=== PATIENT | male | born 1995 | race Caucasian/White ===

== ENCOUNTER 2020-05-31 22:57 | Emergency (ER) | payer OTHER ==
[2020-05-31 23:22] VITALS: BP 140/87; PULSE 85; TEMP 99.5; BMI 28.1
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
== END 2020-05-31 23:57 | disposition home or self-care (01) ==
LOC: FER 22:57
DX: Z77.21 Contact with and (suspected) exposure to potentially hazardous body fluids (principal)
CPT/HCPCS: 99281-25

== ENCOUNTER 2021-10-12 21:27 | Emergency (ER) | payer OTHER ==
[2021-10-12 21:53] VITALS: BP 139/70; PULSE 78; TEMP 98.6; BMI 28.1
== END 2021-10-12 22:46 | disposition home or self-care (01) ==
LOC: FER 21:27
DX: S60.221A Contusion of right hand, initial encounter (principal)
CPT/HCPCS: 99283-25

== ENCOUNTER 2021-10-16 20:12 | Emergency (ER) | payer OTHER ==
[2021-10-16 20:24] VITALS: BP 135/70; PULSE 72; TEMP 99.4; BMI 28.1
== END 2021-10-16 21:12 | disposition home or self-care (01) ==
LOC: FER 20:12
DX: S60.921A Unspecified superficial injury of right hand, initial encounter (principal)
CPT/HCPCS: 73130-TC-RT-FY; 99284-25

== ENCOUNTER 2021-11-12 21:49 | Emergency (ER) | payer OTHER ==
[2021-11-12 22:10] VITALS: BP 130/73; PULSE 79; TEMP 98.9; BMI 28.1
== END 2021-11-12 22:16 | disposition home or self-care (01) ==
LOC: FER 21:49
DX: Z77.21 Contact with and (suspected) exposure to potentially hazardous body fluids (principal)
CPT/HCPCS: 99281-25

== ENCOUNTER 2022-05-25 18:05 | Emergency (ER) | payer OTHER ==
[2022-05-25] MEDS ORDERED: LIDOCAINE HCL 2% (50ML VIAL) INF ONE (18:24)
[2022-05-25] MEDS ORDERED: LIDOCAINE HCL 2% (20ML MULTI-DOSE VIAL) ONE (18:28)
[2022-05-25] MEDS ORDERED: DIPHTH,PERTUSS(ACELL),TET 0.5 ML DISP.SYRIN IM ONE ×2 (18:28→18:40)
[2022-05-25 18:38] VITALS: BP 134/88; PULSE 73; RESP 20; TEMP 99; BMI 27.3
== END 2022-05-25 19:07 | disposition home or self-care (01) ==
LOC: FER 18:05
PROC: 3E0234Z Introduction of Serum, Toxoid and Vaccine into Muscle, Percutaneous Approach (ICD-10-PCS; principal; 2022-05-25)
PROC: 3E0234Z Introduction of Serum, Toxoid and Vaccine into Muscle, Percutaneous Approach (ICD-10-PCS; 2022-05-25)
DX: S61.012A Laceration without foreign body of left thumb without damage to nail, initial encounter (principal); W26.0XXA Contact with knife, initial encounter
CPT/HCPCS: 90715; 99282-25

== ENCOUNTER 2022-06-04 11:54 | Emergency (ER) | payer OTHER ==
[2022-06-04 12:00] VITALS: BP 117/77; PULSE 56; RESP 18; TEMP 98.5; BMI 27.3
== END 2022-06-04 12:10 | disposition home or self-care (01) ==
LOC: FER 11:54
DX: T81.33XA Disruption of traumatic injury wound repair, initial encounter (principal); Z48.02 Encounter for removal of sutures
CPT/HCPCS: 99281-25

== ENCOUNTER 2023-07-05 00:07 | Emergency (ER) | payer OTHER ==
[2023-07-05 00:25] VITALS: BP 136/76; PULSE 87; RESP 18; TEMP 98; BMI 28.1
[2023-07-05] MEDS ORDERED: BACITRACIN 0.9 GM PACKET ONE (01:02)
[2023-07-05] MEDS ORDERED: BACITRACIN ZINC 15 GM TUBE TOPICAL OINTMENT ONE (01:04)
[2023-07-05] MEDS ORDERED: MUPIROCIN CA 2% TOPICAL CREAM 15 GM TUBE TP SCH (10:00)
== END 2023-07-05 02:43 | disposition home or self-care (01) ==
LOC: JER 00:07
DX: S60.511A Abrasion of right hand, initial encounter (principal); S80.911A Unspecified superficial injury of right knee, initial encounter; S80.912A Unspecified superficial injury of left knee, initial encounter; Y04.0XXA Assault by unarmed brawl or fight, initial encounter
CPT/HCPCS: 73560-TC-LT-FY; 73560-TC-RT-FY; 99283-25

== ENCOUNTER 2023-11-07 23:44 | Emergency (ER) | payer OTHER ==
[2023-11-07 23:47] VITALS: BP 144/87; PULSE 105; RESP 18; TEMP 98; BMI 27.3
[2023-11-07] MEDS ORDERED: IBUPROFEN 600 MG TABLET (FP) PO ONE (23:52)
[2023-11-07] MEDS: IBUPROFEN 600 MG TABLET (FP) PO ONE (23:53)
== END 2023-11-08 00:14 | disposition home or self-care (01) ==
LOC: JER 23:44
DX: M25.562 Pain in left knee (principal); S83.92XA Sprain of unspecified site of left knee, initial encounter; X50.9XXA Other and unspecified overexertion or strenuous movements or postures, initial encounter; Y93.02 Activity, running
CPT/HCPCS: 73562-TC-LT-FY; 99283-25

== ENCOUNTER 2024-04-22 19:11 | Emergency (ER) | payer OTHER ==
[2024-04-22 19:20] VITALS: BP 112/77; PULSE 87; RESP 15; TEMP 98.4; BMI 26.6
== END 2024-04-22 20:14 | disposition home or self-care (01) ==
LOC: FER 19:11
DX: M25.561 Pain in right knee (principal); Z77.21 Contact with and (suspected) exposure to potentially hazardous body fluids
CPT/HCPCS: 99283-25

== ENCOUNTER → 2024-04-22 | Emergency (ER) | payer OTHER ==
[2024-04-22 19:18] VITALS: BP 0/0; BMI 27.3
== END ==
LOC: FER 19:06
DX: M25.561 Pain in right knee (principal); Z77.21 Contact with and (suspected) exposure to potentially hazardous body fluids
CPT/HCPCS: 99283-25

== ENCOUNTER 2024-04-29 19:30 | Emergency (ER) | payer OTHER ==
[2024-04-29 19:36] VITALS: BMI 26.6
[2024-04-29 20:00] VITALS: BP 127/76; PULSE 76; RESP 16; TEMP 98.2
== END 2024-04-29 20:48 | disposition home or self-care (01) ==
LOC: FER 19:30
DX: S66.911A Strain of unspecified muscle, fascia and tendon at wrist and hand level, right hand, initial encounter (principal); S80.01XA Contusion of right knee, initial encounter; S90.512A Abrasion, left ankle, initial encounter; Y35.811A Legal intervention involving manhandling, law enforcement official injured, initial encounter
CPT/HCPCS: 99282-25

== ENCOUNTER 2024-12-09 12:09 | Emergency (ER) | payer BC, OTHER ==
[2024-12-09 12:24] VITALS: BP 132/74; PULSE 69; RESP 18; TEMP 98.1; BMI 27.3
[2024-12-09] MEDS ORDERED: ACETAMINOPHEN 325 MG TABLET (FP) ONE (12:34)
[2024-12-09] MEDS ORDERED: ONDANSETRON *ODT* 4 MG TABLET ONE (12:34)
[2024-12-09] MEDS: ACETAMINOPHEN 500 MG TABLET (FP) PO ONE (12:37)
[2024-12-09] MEDS: ONDANSETRON *ODT* 4 MG TABLET SL ONE (13:25)
[2024-12-09 13:26] LABS: HEMATOCRIT 46.4 % (40.1-51.0); HEMOGLOBIN 15.8 g/dL (13.7-17.5); MCHC 34.1 g/dl (32.3-36.5); MEAN CELL VOLUME 90.6 fl (79.0-92.2); MEAN PLT VOLUME 9.7 fl (9.4-12.4); PLATELET COUNT 201 x10^3/uL (163-337); RDW 12.4 % (11.9-15.3)
[2024-12-09 13:34] LABS: ALBUMIN 4.8 g/dl (3.4-5.0); BILIRUBIN,TOTAL 0.6 mg/dl (0.2-1); CALCIUM 9.7 mg/dl (8.5-10.1); CREATININE 1.3 mg/dl (0.6-1.3); POTASSIUM 4.3 mmol/L (3.5-5.1); TOT PROT 7.2 g/dl (6.4-8.2)
[2024-12-09 20:27] LABS: HCV DIAGNOSTIC IN-HOUSE W/RFLX NON-REACTIVE (NONREACTIVE)
[2024-12-09 20:29] LABS: HIV INTERPRETATION NEGATIVE (NEGATIVE)
== END 2024-12-09 14:40 | disposition home or self-care (01) ==
LOC: FER 12:09
DX: K57.32 Diverticulitis of large intestine without perforation or abscess without bleeding (principal); R11.0 Nausea; R10.32 Left lower quadrant pain
CPT/HCPCS: 36415; 74176-TC; 80053; 81003; 85027; 86803; 87086; 87389; 99284-25

== ENCOUNTER 2025-03-17 20:52 | Emergency (ER) | payer BC, OTHER ==
[2025-03-17] MEDS ORDERED: IBUPROFEN 600 MG TABLET (FP) PO ONE (21:33)
[2025-03-17] MEDS: IBUPROFEN 600 MG TABLET (FP) PO ONE (21:36)
[2025-03-17 21:45] VITALS: BP 116/78; PULSE 54; RESP 18; TEMP 98.4; BMI 26.6
== END 2025-03-17 21:48 | disposition home or self-care (01) ==
LOC: FER 20:52
DX: S16.1XXA Strain of muscle, fascia and tendon at neck level, initial encounter (principal); S60.413A Abrasion of left middle finger, initial encounter; S60.415A Abrasion of left ring finger, initial encounter; M54.6 Pain in thoracic spine; Y35.891A Legal intervention involving other specified means, law enforcement official injured, initial encounter
CPT/HCPCS: 99283-25